=== PATIENT | male | born 1990 | race Caucasian/White ===

== ENCOUNTER 2021-12-27 21:23 | Emergency (ER) | payer OTHER ==
[~2021-12-27] VITALS: Ht 170.2 cm; Wt 68.1 kg
[2021-12-27] MEDS ORDERED: levETIRAcetam INJection 1,000 MG in D5W 100 ML IV ONE (21:30)
[2021-12-27] MEDS ORDERED: NS 1,000 ML IV ONE (21:30)
[2021-12-27] MEDS ORDERED: VALPROATE SOD INJ 1,000 MG in D5W 50 ML IV ONE (22:15)
[2021-12-27 23:00] VITALS: BP 122/72
[2021-12-27] MEDS ORDERED: KETOROLAC TROMETHAMINE 10 MG TAB PO ONE (23:10)
[2021-12-27] MEDS ORDERED: DIVALPROEX 500MG *ER* TAB PO ONE (23:10)
[2021-12-27] MEDS ORDERED: DEPA500T2 PO (23:13)
[2021-12-28] MEDS ORDERED: UNRESOLVED CLARIFICATION ENTRY XX SCH (00:01)
== END 2021-12-27 23:31 | disposition left against medical advice (07) ==
LOC: M ED 21:23 → EDBD 21:23 → M ED 23:31
DX: G40.909 Epilepsy, unspecified, not intractable, without status epilepticus (principal); Z88.0 Allergy status to penicillin